=== PATIENT | male | born 1975 ===

== ENCOUNTER 2021-05-19 03:20 | Emergency (ER) | payer OTHER ==
[~2021-05-19] VITALS: Ht 193 cm; Wt 59.0 kg
[2021-05-19] MEDS ORDERED: ACETAMINOPHEN 500 MG TAB PO ONE (07:30)
[2021-05-19 07:43] VITALS: BP 174/99
== END 2021-05-19 07:58 | disposition home or self-care (01) ==
LOC: ER 03:20 → EDBD 03:20 → ER 07:57
DX: S29.012A Strain of muscle and tendon of back wall of thorax, initial encounter (principal); M54.2 Cervicalgia; R51.9 Headache, unspecified; F17.210 Nicotine dependence, cigarettes, uncomplicated; V43.52XA Car driver injured in collision with other type car in traffic accident, initial encounter; Y93.89 Activity, other specified; Y92.488 Other paved roadways as the place of occurrence of the external cause; Y99.8 Other external cause status
CPT/HCPCS: 70450; 71250; 72125; 72128